=== PATIENT | female | born 1980 | race African-American/Black ===

== ENCOUNTER 2020-08-24 15:35 | Inpatient (IN) | payer MEDICAID, OTHER, SELFPAY ==
[~2020-08-24] VITALS: Ht 170.2 cm; Wt 82.6 kg
[2020-08-24 16:16] VITALS: BP 104/72
[2020-08-24] MEDS ORDERED: ALBUTEROL INHALER 90MCG/INH IH PRN ×2 (17:30→21:00)
[2020-08-24] MEDS ORDERED: ACETAMINOPHEN WITH CODEINE 1 TAB TAB PO ONE (17:30)
[2020-08-24 17:41] LABS: APPEARANCE,URINE Clear (CLEAR); BILIRUBIN,URINE Negative (NEGATIVE); COLOR,URINE Yellow (YELLOW); GLUCOSE, URINE (UA) Negative (NEGATIVE); HCG,QUAL RESULT NEGATIVE (NEGATIVE); KETONES,URINE 15 mg/dL (NEGATIVE); LEUKOCYTE ESTERASE ,URINE Negative (NEGATIVE); NITRATE,URINE Negative (NEGATIVE); OCCULT BLOOD,URINE Trace (NEGATIVE); PROTEIN,URINE 300 mg/dL (NEGATIVE)
[2020-08-24 17:58] LABS: BACTERIA,URINE Few /HPF (None Seen); RBC,URINE None Seen /HPF (0-1); WBC,URINE 0-1 /HPF (0-1)
[2020-08-24 18:17] LABS: CREATININE 1.1 mg/dL (0.5-1.5); POTASSIUM 3.8 mmol/L (3.5-5.1)
[2020-08-24 18:18] VITALS: BP 112/72
[2020-08-24 18:18] LABS: BASOPHILS % (AUTO) 0.2 % (0.0-5.0); EOSINOPHILS % (AUTO) 0.3 % (0.0-8.0); HEMATOCRIT 37.6 % (36-48); LYMPHOCYTES % (AUTO) 16.9 % (21.0-51.0); MEAN CORPUSCULAR HEMOGLOBIN 27.6 pg (27.0-33.0); MEAN CORPUSCULAR HGB CONC 33.2 g/dL (32.0-36.0); MONOCYTES % (AUTO) 7.4 % (3.0-13.0); NEUTROPHILS % (AUTO) 74.5 % (40.0-77.0); PLATELET COUNT (AUTO) 224 K/uL (130-400); RED BLOOD CELL COUNT(AUTO) 4.53 MIL/uL (4.00-5.50); RED CELL DISTRIBUTION WIDTH 13.5 % (11.0-15.5); WHITE BLOOD COUNT (AUTO) 6.1 K/uL (4.8-10.8)
[2020-08-24 18:22] LABS: ALBUMIN 3.4 g/dL (3.5-5.0); BILIRUBIN,TOTAL 0.2 mg/dL (0.2-1.0); CRP QUANTITATIVE 152.2 mg/L (0.00-9.0); TOTAL PROTEIN, SERUM 8.5 g/dL (6.0-8.3)
[2020-08-24 18:23] LABS: B-TYPE NATRIURETIC PEPTIDE < 5 pg/mL (0-100)
[2020-08-24] MEDS ORDERED: AZITHROMYCIN 250 MG TABLET PO ONE (18:30)
[2020-08-24] MEDS ORDERED: CEFTRIAXONE 1G VIAL IVP ONE (18:30)
[2020-08-24 19:30] VITALS: BP 116/85
[2020-08-24] MEDS ORDERED: ACETAMINOPHEN 325 MG TAB PO PRN ×2 (21:00)
[2020-08-24] MEDS ORDERED: DOXYCYCLINE 100MG+NS 250ML IV SCH (21:00)
[2020-08-24] MEDS ORDERED: ERGOCALCIFEROL (VITAMIN D2) 50,000 UNIT CAPSULE PO ONE (21:00)
[2020-08-24] MEDS: CEFTRIAXONE 1G VIAL IVP SCH (21:00)
[2020-08-24] MEDS: 0.9% NACL 250ML 250 ML IV SCH (21:17)
[2020-08-24] MEDS: DOXYCYCLINE 100MG+NS 250ML IV SCH (21:17)
[2020-08-24] MEDS: ACETYLCYSTEINE 600 MG CAPSULE PO SCH (21:17)
[2020-08-24] MEDS: FAMOTIDINE 20MG VIAL IV SCH (21:17)
[2020-08-24 22:59] LABS: ABG BASE EXCESS -1.2 mmol/L (-2.0-3.0); ABG HCO3 20.8 mmol/L (21.0-28.0); ABG OXYGEN SATURATION 95.9 % (95.0-99.0); ABG PCO2 28 mmHg (32-45)
[2020-08-24 23:30] VITALS: BP 104/79
[2020-08-25] VITALS (7 sets, daily range): BP systolic 93–110; BP diastolic 62–74
[2020-08-25] MEDS: GUAIFENESIN-DM 200/20 MG 10 ML PO PRN ×3 (00:04→10:12)
[2020-08-25 04:33] LABS: BASOPHILS % (AUTO) 0.4 % (0.0-5.0); EOSINOPHILS % (AUTO) 1.2 % (0.0-8.0); HEMATOCRIT 35.4 % (36-48); LYMPHOCYTES % (AUTO) 26.4 % (21.0-51.0); MEAN CORPUSCULAR HGB CONC 31.6 g/dL (32.0-36.0); MEAN CORPUSCULAR VOLUME 85.3 fL (79-99); MONOCYTES % (AUTO) 10.8 % (3.0-13.0); NEUTROPHILS % (AUTO) 60.4 % (40.0-77.0); PLATELET COUNT (AUTO) 213 K/uL (130-400); RED BLOOD CELL COUNT(AUTO) 4.15 MIL/uL (4.00-5.50); RED CELL DISTRIBUTION WIDTH 13.8 % (11.0-15.5); WHITE BLOOD COUNT (AUTO) 5.1 K/uL (4.8-10.8)
[2020-08-25 04:46] LABS: ALBUMIN 2.9 g/dL (3.5-5.0); BILIRUBIN,TOTAL 0.2 mg/dL (0.2-1.0); POTASSIUM 3.8 mmol/L (3.5-5.1); TOTAL PROTEIN, SERUM 7.6 g/dL (6.0-8.3)
[2020-08-25] MEDS: ACETYLCYSTEINE 600 MG CAPSULE PO SCH ×2 (08:13→20:38)
[2020-08-25] MEDS: ZINC SULFATE 220 CAPSULE PO SCH (08:13)
[2020-08-25] MEDS: CEFTRIAXONE 1G VIAL IVP SCH ×2 (08:13→20:39)
[2020-08-25] MEDS: DOXYCYCLINE 100MG+NS 250ML IV SCH ×2 (08:13→20:38)
[2020-08-25] MEDS: ASCORBIC ACID 500 MG TAB PO SCH (08:13)
[2020-08-25] MEDS: FAMOTIDINE 20MG VIAL IV SCH ×2 (08:13→20:39)
[2020-08-25] MEDS: 0.9% NACL 250ML 250 ML IV SCH ×2 (08:13→20:38)
[2020-08-25] MEDS: ONDANSETRON 4MG INJ IV PRN ×2 (10:12→14:51)
[2020-08-25] MEDS ORDERED: PHARMACY COMMUNICATION MISC SCH (16:30)
[2020-08-25] MEDS ORDERED: PROCHLORPERAZINE 10MG/2ML INJ IV PRN (16:30)
[2020-08-25] MEDS: GUAIFENESIN-CODEINE 5 ML SYRUP PO PRN (17:57)
[2020-08-25] MEDS: ENOXAPARIN SODIUM 40 MG/0.4 ML SYRINGE SQ SCH (17:58)
[2020-08-25] MEDS: DEXAMETHASONE SOD PHOSPHATE 4 MG/ML 1ML VIAL IVP SCH (17:58)
[2020-08-25] MEDS ORDERED: COMPOUND IV REFRIGERATED 1 EACH IVSOLN MISC PRN (18:00)
[2020-08-25] MEDS ORDERED: REMDESIVIR (EUA) 520 200 MG in 0.9% NACL 250ML 250 ML IV ONE (18:00)
[2020-08-26 03:39] VITALS: BP 97/67
[2020-08-26 03:57] LABS: BASOPHILS % (AUTO) 0.3 % (0.0-5.0); HEMATOCRIT 36.8 % (36-48); LYMPHOCYTES % (AUTO) 19.3 % (21.0-51.0); MEAN CORPUSCULAR HEMOGLOBIN 27.4 pg (27.0-33.0); MEAN CORPUSCULAR HGB CONC 31.8 g/dL (32.0-36.0); MEAN CORPUSCULAR VOLUME 86.2 fL (79-99); MONOCYTES % (AUTO) 4.7 % (3.0-13.0); NEUTROPHILS % (AUTO) 74.7 % (40.0-77.0); PLATELET COUNT (AUTO) 237 K/uL (130-400); RED BLOOD CELL COUNT(AUTO) 4.27 MIL/uL (4.00-5.50); RED CELL DISTRIBUTION WIDTH 13.8 % (11.0-15.5)
[2020-08-26 04:17] LABS: ALBUMIN 2.9 g/dL (3.5-5.0); BILIRUBIN,TOTAL 0.2 mg/dL (0.2-1.0); CREATININE 0.9 mg/dL (0.5-1.5); CRP QUANTITATIVE 89.1 mg/L (0.00-9.0); POTASSIUM 4.2 mmol/L (3.5-5.1); TOTAL PROTEIN, SERUM 7.8 g/dL (6.0-8.3)
[2020-08-26 04:33] LABS: BAND NEUTROPHILS % (MANUAL) 6 % (0-2); LYMPHOCYTES % (MANUAL) 15 % (22-44); MONOCYTES % (MANUAL) 4 % (2-9); SEGMENTED NEUTROPHILS % 75 % (40-70)
[2020-08-26 04:37] LABS: MAN.DIFF COMMENT-IMPRESSION MANUAL DIFFERENTIAL
[2020-08-26 05:00] LABS: BILIRUBIN,DIRECT 0.1 mg/dL (0.0-0.3)
[2020-08-26] MEDS: REMDESIVIR LABS MISC SCH (06:16)
[2020-08-26 07:00] VITALS: BP 105/70
[2020-08-26 09:00] VITALS: BP 113/72
[2020-08-26] MEDS: FAMOTIDINE 20MG VIAL IV SCH ×2 (09:12→20:30)
[2020-08-26] MEDS: 0.9% NACL 250ML 250 ML IV SCH ×2 (09:13→20:29)
[2020-08-26] MEDS: DEXAMETHASONE SOD PHOSPHATE 4 MG/ML 1ML VIAL IVP SCH (09:13)
[2020-08-26] MEDS: ACETYLCYSTEINE 600 MG CAPSULE PO SCH ×2 (09:13→20:30)
[2020-08-26] MEDS: ENOXAPARIN SODIUM 40 MG/0.4 ML SYRINGE SQ SCH (09:13)
[2020-08-26] MEDS: ASCORBIC ACID 500 MG TAB PO SCH (09:13)
[2020-08-26] MEDS: DOXYCYCLINE 100MG+NS 250ML IV SCH ×2 (09:13→20:29)
[2020-08-26] MEDS: ZINC SULFATE 220 CAPSULE PO SCH (09:13)
[2020-08-26] MEDS: CEFTRIAXONE 1G VIAL IVP SCH ×2 (09:13→20:30)
[2020-08-26 13:00] VITALS: BP 110/66
[2020-08-26 15:18] VITALS: BP 114/53
[2020-08-26] MEDS: REMDESIVIR (EUA) 520 100 MG in 0.9% NACL 250ML 250 ML IV SCH (17:44)
[2020-08-26] MEDS: GUAIFENESIN-CODEINE 5 ML SYRUP PO PRN (17:47)
[2020-08-26 19:35] VITALS: BP 106/67
[2020-08-27] VITALS (8 sets, daily range): BP systolic 97–109; BP diastolic 57–67
[2020-08-27 04:56] LABS: BASOPHILS % (AUTO) 0.2 % (0.0-5.0); EOSINOPHILS % (AUTO) 0.2 % (0.0-8.0); HEMATOCRIT 34.9 % (36-48); LYMPHOCYTES % (AUTO) 24.7 % (21.0-51.0); MEAN CORPUSCULAR HEMOGLOBIN 27.1 pg (27.0-33.0); MEAN CORPUSCULAR HGB CONC 32.1 g/dL (32.0-36.0); MEAN CORPUSCULAR VOLUME 84.5 fL (79-99); MONOCYTES % (AUTO) 12.6 % (3.0-13.0); NEUTROPHILS % (AUTO) 61.4 % (40.0-77.0); PLATELET COUNT (AUTO) 285 K/uL (130-400); RED BLOOD CELL COUNT(AUTO) 4.13 MIL/uL (4.00-5.50); RED CELL DISTRIBUTION WIDTH 13.7 % (11.0-15.5); WHITE BLOOD COUNT (AUTO) 5.9 K/uL (4.8-10.8)
[2020-08-27 05:05] LABS: ALBUMIN 2.8 g/dL (3.5-5.0); BILIRUBIN,TOTAL 0.2 mg/dL (0.2-1.0); CREATININE 1.1 mg/dL (0.5-1.5); CRP QUANTITATIVE 34.2 mg/L (0.00-9.0); POTASSIUM 4.4 mmol/L (3.5-5.1); TOTAL PROTEIN, SERUM 7.4 g/dL (6.0-8.3)
[2020-08-27] MEDS: DEXAMETHASONE SOD PHOSPHATE 4 MG/ML 1ML VIAL IVP SCH (09:33)
[2020-08-27] MEDS: ZINC SULFATE 220 CAPSULE PO SCH (09:33)
[2020-08-27] MEDS: 0.9% NACL 250ML 250 ML IV SCH ×2 (09:33→19:28)
[2020-08-27] MEDS: DOXYCYCLINE 100MG+NS 250ML IV SCH ×2 (09:33→19:28)
[2020-08-27] MEDS: ACETYLCYSTEINE 600 MG CAPSULE PO SCH ×2 (09:33→19:28)
[2020-08-27] MEDS: ASCORBIC ACID 500 MG TAB PO SCH (09:33)
[2020-08-27] MEDS: FAMOTIDINE 20MG VIAL IV SCH ×2 (09:33→19:28)
[2020-08-27] MEDS: CEFTRIAXONE 1G VIAL IVP SCH ×2 (09:33→19:28)
[2020-08-27] MEDS: ENOXAPARIN SODIUM 40 MG/0.4 ML SYRINGE SQ SCH (09:34)
[2020-08-27] MEDS: GUAIFENESIN-CODEINE 5 ML SYRUP PO PRN (09:35)
[2020-08-27] MEDS ORDERED: LOPERAMIDE HCL 2 MG CAP PO PRN (11:30)
[2020-08-27] MEDS ORDERED: LOPERAMIDE HCL 2 MG CAP PO SCH (11:30)
[2020-08-27] MEDS: REMDESIVIR (EUA) 520 100 MG in 0.9% NACL 250ML 250 ML IV SCH (18:22)
[2020-08-28] MEDS: GUAIFENESIN-CODEINE 5 ML SYRUP PO PRN ×2 (00:10→07:47)
[2020-08-28 03:58] VITALS: BP 94/64
[2020-08-28 04:35] LABS: BASOPHILS % (AUTO) 0.2 % (0.0-5.0); EOSINOPHILS % (AUTO) 0.2 % (0.0-8.0); HEMATOCRIT 34.3 % (36-48); MEAN CORPUSCULAR HEMOGLOBIN 27.2 pg (27.0-33.0); MEAN CORPUSCULAR HGB CONC 31.8 g/dL (32.0-36.0); MEAN CORPUSCULAR VOLUME 85.5 fL (79-99); MONOCYTES % (AUTO) 12.1 % (3.0-13.0); NEUTROPHILS % (AUTO) 62.6 % (40.0-77.0); PLATELET COUNT (AUTO) 338 K/uL (130-400); RED BLOOD CELL COUNT(AUTO) 4.01 MIL/uL (4.00-5.50); RED CELL DISTRIBUTION WIDTH 14.1 % (11.0-15.5); WHITE BLOOD COUNT (AUTO) 6.6 K/uL (4.8-10.8)
[2020-08-28 05:07] LABS: ALBUMIN 2.7 g/dL (3.5-5.0); BILIRUBIN,TOTAL 0.2 mg/dL (0.2-1.0); CRP QUANTITATIVE 20.8 mg/L (0.00-9.0); POTASSIUM 3.8 mmol/L (3.5-5.1); THYROID STIMULATING HORMONE 0.98 uIU/mL (0.36-3.74)
[2020-08-28] MEDS: REMDESIVIR LABS MISC SCH ×2 (05:22→05:23)
[2020-08-28] MEDS: CEFTRIAXONE 1G VIAL IVP SCH ×2 (07:47→20:59)
[2020-08-28] MEDS: 0.9% NACL 250ML 250 ML IV SCH ×2 (07:47→20:58)
[2020-08-28] MEDS: DOXYCYCLINE 100MG+NS 250ML IV SCH ×2 (07:47→20:58)
[2020-08-28] MEDS: FAMOTIDINE 20MG VIAL IV SCH ×2 (07:48→20:59)
[2020-08-28] MEDS: DEXAMETHASONE SOD PHOSPHATE 4 MG/ML 1ML VIAL IVP SCH (07:48)
[2020-08-28] MEDS: ZINC SULFATE 220 CAPSULE PO SCH (07:48)
[2020-08-28] MEDS: ASCORBIC ACID 500 MG TAB PO SCH (07:48)
[2020-08-28] MEDS: ACETYLCYSTEINE 600 MG CAPSULE PO SCH ×2 (07:48→20:59)
[2020-08-28] MEDS: ENOXAPARIN SODIUM 40 MG/0.4 ML SYRINGE SQ SCH (07:50)
[2020-08-28 08:00] VITALS: BP 103/69
[2020-08-28 12:02] VITALS: BP 102/67
[2020-08-28 16:00] VITALS: BP 105/56
[2020-08-28] MEDS: REMDESIVIR (EUA) 520 100 MG in 0.9% NACL 250ML 250 ML IV SCH (17:33)
[2020-08-28 19:00] VITALS: BP 99/57
[2020-08-28 23:00] VITALS: BP 115/78
[2020-08-29 03:00] VITALS: BP 127/83
[2020-08-29 04:43] LABS: BASOPHILS % (AUTO) 0.1 % (0.0-5.0); EOSINOPHILS % (AUTO) 0.2 % (0.0-8.0); LYMPHOCYTES % (AUTO) 19.8 % (21.0-51.0); MEAN CORPUSCULAR HEMOGLOBIN 27.1 pg (27.0-33.0); MEAN CORPUSCULAR HGB CONC 31.8 g/dL (32.0-36.0); MEAN CORPUSCULAR VOLUME 85.2 fL (79-99); MONOCYTES % (AUTO) 12.5 % (3.0-13.0); NEUTROPHILS % (AUTO) 66.1 % (40.0-77.0); PLATELET COUNT (AUTO) 348 K/uL (130-400); RED BLOOD CELL COUNT(AUTO) 3.99 MIL/uL (4.00-5.50); RED CELL DISTRIBUTION WIDTH 13.8 % (11.0-15.5); WHITE BLOOD COUNT (AUTO) 9.8 K/uL (4.8-10.8)
[2020-08-29 04:54] LABS: ALBUMIN 2.7 g/dL (3.5-5.0); BILIRUBIN,TOTAL 0.2 mg/dL (0.2-1.0); CREATININE 0.8 mg/dL (0.5-1.5); POTASSIUM 3.6 mmol/L (3.5-5.1); TOTAL PROTEIN, SERUM 6.8 g/dL (6.0-8.3)
[2020-08-29] MEDS: REMDESIVIR LABS MISC SCH (05:00)
[2020-08-29 08:30] VITALS: BP 123/71
[2020-08-29] MEDS: DOXYCYCLINE 100MG+NS 250ML IV SCH (08:37)
[2020-08-29] MEDS: 0.9% NACL 250ML 250 ML IV SCH (08:38)
[2020-08-29] MEDS: ASCORBIC ACID 500 MG TAB PO SCH (08:38)
[2020-08-29] MEDS: CEFTRIAXONE 1G VIAL IVP SCH (08:38)
[2020-08-29] MEDS: ZINC SULFATE 220 CAPSULE PO SCH (08:38)
[2020-08-29] MEDS: ACETYLCYSTEINE 600 MG CAPSULE PO SCH (08:38)
[2020-08-29] MEDS: FAMOTIDINE 20MG VIAL IV SCH (08:38)
[2020-08-29] MEDS: ENOXAPARIN SODIUM 40 MG/0.4 ML SYRINGE SQ SCH (08:39)
[2020-08-29] MEDS: DEXAMETHASONE SOD PHOSPHATE 4 MG/ML 1ML VIAL IVP SCH (08:39)
[2020-08-29] MEDS ORDERED: REMDESIVIR (EUA) 520 100 MG in 0.9% NACL 250ML 250 ML IV SCH (11:00)
[2020-08-29 11:44] VITALS: BP 120/72
[2020-08-29] MEDS ORDERED: ALBUHFA IH (14:08)
[2020-08-29] MEDS ORDERED: APIX2.5T PO (14:08)
[2020-08-29] MEDS ORDERED: ASCO500T20 PO (14:08)
[2020-08-29] MEDS ORDERED: DEXA6TAB PO (14:08)
== END 2020-08-29 15:45 | disposition home or self-care (01) | DRG 177 ==
LOC: EDH 15:35 → EDHIP 20:31 → 2BH 23:30
PROVIDERS: ADMIT Internal Medicine; ATTEND Internal Medicine
PROC: XW033E5 Introduction of Remdesivir Anti-infective into Peripheral Vein, Percutaneous Approach, New Technology Group 5 (ICD-10-PCS; principal; 2020-08-25)
DX: U07.1 COVID-19 (principal); J12.82 Pneumonia due to coronavirus disease 2019; J96.01 Acute respiratory failure with hypoxia; D68.59 Other primary thrombophilia; R63.0 Anorexia; Z79.01 Long term (current) use of anticoagulants; Z68.28 Body mass index [BMI] 28.0-28.9, adult; Z98.891 History of uterine scar from previous surgery
CPT/HCPCS: 36415; 36600; 71045; 80053; 81001; 81025; 82248; 82728; 82803; 83540; 83550; 83880; 84145; 84443; 85025; 85045; 85378; 86140; 87040; 87635; 87804; 87880; 93005; 94760; C9803; G0378; J0696; J1100; J1650; J2405; J3490; J7050